=== PATIENT | female | born 1990 | race Two or more races ===

== ENCOUNTER 2016-08-28 05:22 | Inpatient (IN) | payer BC ==
[2016-08-28] VITALS (23 sets, daily range): BP systolic 110–134; BP diastolic 57–86
[~2016-08-28] VITALS: Ht 157.5 cm; Wt 71.2 kg
[2016-08-28 06:57] LABS: EOSINOPHIL (%) 0.5 % (0-5); EOSINOPHIL COUNT 0.1 K/uL (0-0.3); IMMATURE GRANULOCYTE (%) 1.5 % (0.0-0.7); IMMATURE GRANULOCYTE COUNT 1.5 K/uL; MONOCYTE (%) 7.6 % (3-12); MONOCYTE COUNT 0.8 K/uL (0-0.8); NEUTROPHIL (%) 70.7 % (45-76); NEUTROPHIL COUNT 7.1 K/uL (1.8-6.4)
[2016-08-28 07:40] LABS: MCH 27.4 PG (29.0-34.0); MCHC 33.2 G/DL (30.0-36.0); MCV 82.3 FL (83-99); MEAN PLAT.VOLUME 13.1 uM^3 (9.5-12.4); PLAT.SUFFICIENCY DECREASED; PLATELET COUNT 120 K/uL (156-360); RBC DIS.WIDTH-CV 15.4 % (11.8-14.6); RED BLOOD COUNT 4.13 M/uL (3.80-5.20); USER ID STC; WHITE BLOOD COUNT 10.1 K/uL (4.1-10.2)
[2016-08-29] VITALS (10 sets, daily range): BP systolic 99–130; BP diastolic 55–63
[2016-08-30 07:24] LABS: EOSINOPHIL (%) 2.8 % (0-5); EOSINOPHIL COUNT 0.4 K/uL (0-0.3); HEMATOCRIT 30.1 % (36.0-46.0); IMMATURE GRANULOCYTE (%) 0.7 % (0.0-0.7); IMMATURE GRANULOCYTE COUNT 0.1 K/uL; LYMPHOCYTE COUNT 3.1 K/uL (1.0-2.8); MCH 27.4 PG (29.0-34.0); MCHC 32.6 G/DL (30.0-36.0); MCV 84.1 FL (83-99); MONOCYTE (%) 9.2 % (3-12); MONOCYTE COUNT 1.2 K/uL (0-0.8); NEUTROPHIL (%) 63.2 % (45-76); RBC DIS.WIDTH-CV 16.2 % (11.8-14.6); RBC DIS.WIDTH-SD 49.5 % (39-53); RED BLOOD COUNT 3.58 M/uL (3.80-5.20); WHITE BLOOD COUNT 12.7 K/uL (4.1-10.2)
[2016-08-30 07:26] VITALS: BP 109/67
[2016-08-30 07:35] LABS: PLAT.SUFFICIENCY DECREASED; PLATELET COUNT 109 K/uL (156-360); USER ID CCL
== END 2016-08-30 14:57 | disposition home or self-care (01) | DRG 775 ==
LOC: LDRP-OP → 2WEST 05:23 → LDRP-OP 09-28 11:10
PROVIDERS: Advanced Practice Midwife
DX: O70.1 Second degree perineal laceration during delivery (principal); O99.02 Anemia complicating childbirth; D62 Acute posthemorrhagic anemia; Z37.0 Single live birth; Z3A.39 39 weeks gestation of pregnancy; O42.02 Full-term premature rupture of membranes, onset of labor within 24 hours of rupture; D69.6 Thrombocytopenia, unspecified; O99.12 Other diseases of the blood and blood-forming organs and certain disorders involving the immune mechanism complicating childbirth; O69.81X0 Labor and delivery complicated by cord around neck, without compression, not applicable or unspecified
CPT/HCPCS: 36415; 85025; C1755; J3010; J7120